=== PATIENT | female | born 1965 | race African-American/Black ===

== ENCOUNTER 2017-08-29 08:35 | Outpatient (CLI) | payer OTHER | END 2017-08-29 19:55 | disposition home or self-care (01) | LOC: SNM 08:35 | PROVIDERS: ATTEND Specialist | DX: E05.00 Thyrotoxicosis with diffuse goiter without thyrotoxic crisis or storm (principal); E05.90 Thyrotoxicosis, unspecified without thyrotoxic crisis or storm | CPT/HCPCS: 78012; A9516 ==

== ENCOUNTER 2017-10-18 11:08 | Outpatient (CLI) | payer OTHER ==
[2017-10-18 12:08] LABS: BASOPHILS # (AUTO) 0.1 K/uL (0.0-0.2); EOSINOPHILS % (AUTO) 0.6 % (0.0-4.0); HEMATOCRIT 35.9 % (36-48); HEMOGLOBIN 11.7 g/dL (12.0-16.0); LYMPHOCYTES # (AUTO) 1.9 K/uL (1.0-5.5); LYMPHOCYTES % (AUTO) 30.2 % (20.5-51.5); MEAN CORPUSCULAR HEMOGLOBIN 26 pg (27-31); MEAN CORPUSCULAR HGB CONC 33 % (32-36); MEAN CORPUSCULAR VOLUME 80 fL (79.0-98.0); MONOCYTES # (AUTO) 0.5 K/uL (0.0-1.0); MONOCYTES % (AUTO) 7.3 % (1.7-9.3); NEUTROPHILS # (AUTO) 3.8 K/uL (1.8-7.7); NEUTROPHILS % (AUTO) 60.9 % (40.0-70.0); PLATELET COUNT (AUTO) 350 K/uL (130-430); RED BLOOD CELL COUNT(AUTO) 4.51 MIL/uL (4.2-6.2); RED CELL DISTRIBUTION WIDTH 13.4 % (9.0-15.0); WHITE BLOOD COUNT (AUTO) 6.3 K/uL (4.8-10.8)
[2017-10-18 12:22] LABS: FREE T4 (FREE THYROXINE) 1.3 ng/dl (0.8-1.5); THYROID STIMULATING HORMONE < 0.01 uIu/mL (0.36-3.74)
[2017-10-19 06:16] LABS: HEMOGLOBIN A1C 5.5 % (4.8-5.6)
== END 2017-10-18 20:54 | disposition home or self-care (01) ==
LOC: SLB 11:08
PROVIDERS: ATTEND Specialist
DX: E05.00 Thyrotoxicosis with diffuse goiter without thyrotoxic crisis or storm (principal); E05.90 Thyrotoxicosis, unspecified without thyrotoxic crisis or storm; R73.09 Other abnormal glucose
CPT/HCPCS: 36415; 83036; 84439; 84443-TC; 84480; 85025

== ENCOUNTER 2017-10-19 10:19 | Outpatient (CLI) | payer OTHER | END 2017-10-19 19:07 | disposition home or self-care (01) | LOC: SUS 10:19 | PROVIDERS: ATTEND Specialist | DX: E04.2 Nontoxic multinodular goiter (principal); E05.90 Thyrotoxicosis, unspecified without thyrotoxic crisis or storm | CPT/HCPCS: 76536-TC ==

== ENCOUNTER 2018-04-21 08:05 | Outpatient (CLI) | payer OTHER ==
[2018-04-21 08:58] LABS: HEMATOCRIT 37.7 % (36-48); HEMOGLOBIN 12.3 g/dL (12.0-16.0); MEAN CORPUSCULAR VOLUME 82 fL (79.0-98.0); RED BLOOD CELL COUNT(AUTO) 4.59 MIL/uL (4.2-6.2); WHITE BLOOD COUNT (AUTO) 5.3 K/uL (4.8-10.8)
[2018-04-21 08:59] LABS: BASOPHILS % (AUTO) 0.4 % (0.0-2.0); EOSINOPHILS # (AUTO) 0.1 K/uL (0.0-0.4); EOSINOPHILS % (AUTO) 1.4 % (0.0-4.0); LYMPHOCYTES # (AUTO) 1.9 K/uL (1.0-5.5); LYMPHOCYTES % (AUTO) 35.7 % (20.5-51.5); MEAN CORPUSCULAR HEMOGLOBIN 27 pg (27-31); MEAN CORPUSCULAR HGB CONC 33 % (32-36); MONOCYTES # (AUTO) 0.5 K/uL (0.0-1.0); MONOCYTES % (AUTO) 9.9 % (1.7-9.3); NEUTROPHILS # (AUTO) 2.8 K/uL (1.8-7.7); NEUTROPHILS % (AUTO) 52.6 % (40.0-70.0); PLATELET COUNT (AUTO) 318 K/uL (130-430); RED CELL DISTRIBUTION WIDTH 13.3 % (9.0-15.0)
[2018-04-21 09:30] LABS: ALBUMIN 3.1 g/dL (3.4-4.8); CALCIUM 9.2 mg/dL (8.4-11.0); CREATININE 0.6 mg/dL (0.55-1.30); FREE T4 (FREE THYROXINE) 0.6 ng/dL (0.6-1.6); POTASSIUM 3.9 mmol/L (3.5-5.1); THYROID STIMULATING HORMONE 0.55 uIu/mL (0.34-4.82); TOTAL BILIRUBIN 0.5 mg/dL (0.0-1.0)
[2018-04-23 00:31] LABS: HEMOGLOBIN A1C 5.5 % (4.8-5.6)
== END 2018-04-21 21:02 | disposition home or self-care (01) ==
LOC: SLB 08:05
PROVIDERS: ATTEND Specialist
DX: E55.9 Vitamin D deficiency, unspecified (principal); R73.09 Other abnormal glucose; E66.09 Other obesity due to excess calories; E05.00 Thyrotoxicosis with diffuse goiter without thyrotoxic crisis or storm
CPT/HCPCS: 36415; 80053; 80061; 82306; 83036; 84439; 84443-TC; 85025

== ENCOUNTER 2018-08-21 09:55 | Outpatient (CLI) | payer OTHER ==
[2018-08-21 10:42] LABS: BASOPHILS % (AUTO) 0.6 % (0.0-2.0); EOSINOPHILS # (AUTO) 0.1 K/uL (0.0-0.4); EOSINOPHILS % (AUTO) 1.2 % (0.0-4.0); HEMATOCRIT 40.2 % (36-48); HEMOGLOBIN 13.1 g/dL (12.0-16.0); LYMPHOCYTES # (AUTO) 1.9 K/uL (1.0-5.5); MEAN CORPUSCULAR HEMOGLOBIN 27 pg (27-31); MEAN CORPUSCULAR HGB CONC 33 % (32-36); MEAN CORPUSCULAR VOLUME 83 fL (79.0-98.0); MONOCYTES # (AUTO) 0.4 K/uL (0.0-1.0); MONOCYTES % (AUTO) 7.4 % (1.7-9.3); NEUTROPHILS # (AUTO) 3.5 K/uL (1.8-7.7); NEUTROPHILS % (AUTO) 58.8 % (40.0-70.0); PLATELET COUNT (AUTO) 325 K/uL (130-430); RED BLOOD CELL COUNT(AUTO) 4.85 MIL/uL (4.2-6.2)
[2018-08-21 11:23] LABS: FREE T4 (FREE THYROXINE) 0.9 ng/dL (0.6-1.6); THYROID STIMULATING HORMONE 0.42 uIu/mL (0.34-4.82)
== END 2018-08-21 20:57 | disposition home or self-care (01) ==
LOC: SLB 09:55
PROVIDERS: ATTEND Specialist
DX: E05.00 Thyrotoxicosis with diffuse goiter without thyrotoxic crisis or storm (principal); R73.09 Other abnormal glucose
CPT/HCPCS: 36415; 84439; 84443-TC; 84480; 85025

== ENCOUNTER 2018-12-25 09:51 | Outpatient (CLI) | payer OTHER ==
[2018-12-25 10:39] LABS: BASOPHILS % (AUTO) 0.3 % (0.0-2.0); EOSINOPHILS # (AUTO) 0.1 K/uL (0.0-0.4); EOSINOPHILS % (AUTO) 1.5 % (0.0-4.0); HEMATOCRIT 35.6 % (36-48); HEMOGLOBIN 11.7 g/dL (12.0-16.0); LYMPHOCYTES % (AUTO) 34.1 % (20.5-51.5); MEAN CORPUSCULAR HEMOGLOBIN 27 pg (27-31); MEAN CORPUSCULAR HGB CONC 33 % (32-36); MEAN CORPUSCULAR VOLUME 82 fL (79.0-98.0); MONOCYTES # (AUTO) 0.5 K/uL (0.0-1.0); MONOCYTES % (AUTO) 9.1 % (1.7-9.3); NEUTROPHILS # (AUTO) 3.2 K/uL (1.8-7.7); PLATELET COUNT (AUTO) 297 K/uL (130-430); RED BLOOD CELL COUNT(AUTO) 4.33 MIL/uL (4.2-6.2); RED CELL DISTRIBUTION WIDTH 14.1 % (9.0-15.0); WHITE BLOOD COUNT (AUTO) 5.8 K/uL (4.8-10.8)
[2018-12-25 11:37] LABS: CALCIUM 8.8 mg/dL (8.4-11.0); CREATININE 0.57 mg/dL (0.55-1.30); POTASSIUM 3.8 mmol/L (3.5-5.1); TOTAL BILIRUBIN 0.4 mg/dL (0.0-1.0)
[2018-12-25 11:38] LABS: ALBUMIN 3.6 g/dL (3.4-4.8); FREE T4 (FREE THYROXINE) 1.2 ng/dL (0.6-1.6); THYROID STIMULATING HORMONE 1.05 uIu/mL (0.34-4.82)
== END 2018-12-25 21:07 | disposition home or self-care (01) ==
LOC: SLB 09:51
PROVIDERS: ATTEND Specialist
DX: E05.00 Thyrotoxicosis with diffuse goiter without thyrotoxic crisis or storm (principal); E66.09 Other obesity due to excess calories; R73.09 Other abnormal glucose
CPT/HCPCS: 36415; 80053; 80061; 83036; 84439; 84443-TC; 85025

== ENCOUNTER 2019-01-09 10:05 | Outpatient (CLI) | payer OTHER | END 2019-01-09 21:08 | disposition home or self-care (01) | LOC: SMA 10:05 | DX: Z12.31 Encounter for screening mammogram for malignant neoplasm of breast (principal) | CPT/HCPCS: 77067 ==

== ENCOUNTER 2019-04-24 08:35 | Outpatient (CLI) | payer OTHER ==
[2019-04-24 09:34] LABS: BASOPHILS % (AUTO) 0.2 % (0.0-2.0); EOSINOPHILS % (AUTO) 0.8 % (0.0-4.0); HEMATOCRIT 37.3 % (36-48); HEMOGLOBIN 12.3 g/dL (12.0-16.0); LYMPHOCYTES # (AUTO) 1.8 K/uL (1.0-5.5); MEAN CORPUSCULAR HEMOGLOBIN 27 pg (27-31); MEAN CORPUSCULAR HGB CONC 33 % (32-36); MEAN CORPUSCULAR VOLUME 82 fL (79.0-98.0); MONOCYTES # (AUTO) 0.5 K/uL (0.0-1.0); MONOCYTES % (AUTO) 9.2 % (1.7-9.3); NEUTROPHILS # (AUTO) 2.9 K/uL (1.8-7.7); NEUTROPHILS % (AUTO) 55.8 % (40.0-70.0); PLATELET COUNT (AUTO) 358 K/uL (130-430); RED BLOOD CELL COUNT(AUTO) 4.57 MIL/uL (4.2-6.2); RED CELL DISTRIBUTION WIDTH 13.4 % (9.0-15.0); WHITE BLOOD COUNT (AUTO) 5.2 K/uL (4.8-10.8)
[2019-04-24 09:52] LABS: ALBUMIN 3.3 g/dL (3.4-4.8); CALCIUM 9.2 mg/dL (8.4-11.0); CREATININE 0.62 mg/dL (0.55-1.30); FREE T4 (FREE THYROXINE) 1.2 ng/dl (0.8-1.5); POTASSIUM 3.4 mmol/L (3.5-5.1); THYROID STIMULATING HORMONE 1.76 uIu/mL (0.36-3.74); TOTAL BILIRUBIN 0.5 mg/dL (0.0-1.0)
[2019-04-25 08:11] LABS: HEMOGLOBIN A1C 5.6 % (4.8-5.6)
== END 2019-04-24 21:08 | disposition home or self-care (01) ==
LOC: SUS 08:35
PROVIDERS: ATTEND Specialist
DX: E04.9 Nontoxic goiter, unspecified (principal); E50.0 Vitamin A deficiency with conjunctival xerosis; E66.01 Morbid (severe) obesity due to excess calories; E55.9 Vitamin D deficiency, unspecified; D50.0 Iron deficiency anemia secondary to blood loss (chronic)
CPT/HCPCS: 36415; 76536-TC; 80053; 82306; 83036; 83540-TC; 83550-TC; 84439; 84443-TC; 85025

== ENCOUNTER 2019-08-13 09:38 | Outpatient (CLI) | payer OTHER | END 2019-08-13 20:52 | disposition home or self-care (01) | LOC: SMA 09:38 | DX: N64.89 Other specified disorders of breast (principal) | CPT/HCPCS: 77065 ==

== ENCOUNTER 2020-07-08 09:16 | Outpatient (CLI) | payer OTHER ==
[2020-07-08 10:37] LABS: BASOPHILS % (AUTO) 0.6 % (0.0-2.0); EOSINOPHILS # (AUTO) 0.1 K/uL (0.0-0.4); HEMATOCRIT 36.1 % (36-48); HEMOGLOBIN 11.7 g/dL (12.0-16.0); LYMPHOCYTES # (AUTO) 1.7 K/uL (1.0-5.5); LYMPHOCYTES % (AUTO) 31.4 % (20.5-51.5); MEAN CORPUSCULAR HEMOGLOBIN 26 pg (27-31); MEAN CORPUSCULAR HGB CONC 33 % (32-36); MEAN CORPUSCULAR VOLUME 81 fL (79.0-98.0); MONOCYTES # (AUTO) 0.5 K/uL (0.0-1.0); MONOCYTES % (AUTO) 8.6 % (1.7-9.3); NEUTROPHILS # (AUTO) 3.1 K/uL (1.8-7.7); NEUTROPHILS % (AUTO) 58.4 % (40.0-70.0); PLATELET COUNT (AUTO) 353 K/uL (130-430); RED BLOOD CELL COUNT(AUTO) 4.49 MIL/uL (4.2-6.2); RED CELL DISTRIBUTION WIDTH 14.3 % (9.0-15.0); WHITE BLOOD COUNT (AUTO) 5.4 K/uL (4.8-10.8)
[2020-07-08 10:57] LABS: ALBUMIN 3.2 g/dL (3.4-4.8); CALCIUM 9.4 mg/dL (8.4-11.0); CREATININE 0.59 mg/dL (0.55-1.30); FREE T4 (FREE THYROXINE) 1.3 ng/dl (0.8-1.5); POTASSIUM 3.7 mmol/L (3.5-5.1); THYROID STIMULATING HORMONE 0.69 uIu/mL (0.36-3.74); TOTAL BILIRUBIN 0.4 mg/dL (0.0-1.0)
== END 2020-07-08 20:30 | disposition home or self-care (01) ==
LOC: SUS 09:16
DX: Z00.00 Encounter for general adult medical examination without abnormal findings (principal); M79.604 Pain in right leg
CPT/HCPCS: 36415; 80053; 80061; 82306; 84439; 84443; 85025; 93922; 93971

== ENCOUNTER 2020-07-30 10:45 | Outpatient (CLI) | payer OTHER | END 2020-07-30 21:06 | disposition home or self-care (01) | LOC: SMA 10:45 | DX: Z12.31 Encounter for screening mammogram for malignant neoplasm of breast (principal); N64.89 Other specified disorders of breast | CPT/HCPCS: 77067 ==

== ENCOUNTER 2021-10-27 11:05 | Inpatient (IN) | payer OTHER ==
[~2021-10-27] VITALS: Ht 172.7 cm; Wt 112.9 kg
[~2021-10-27 11:05] MED LIST: ACETAMINOPHEN 500 MG TABLET PO ONE; CEFAZOLIN SOD 1 GM in D5W 50 ML IV ONE; CELECOXIB 200 MG CAPSULE PO ONE; PREGABALIN 75 MG CAPSULE (LYRICA) PO ONE
[2021-10-27] MEDS ORDERED: ACETAMINOPHEN 500 MG TABLET ONE (11:58)
[2021-10-27] MEDS ORDERED: CELECOXIB 200 MG CAPSULE ONE (11:58)
[2021-10-27] MEDS ORDERED: PREGABALIN 75 MG CAPSULE (LYRICA) ONE (11:59)
[2021-10-27] MEDS ORDERED: PREGABALIN 75 MG CAPSULE (LYRICA) PO ONE (12:00)
[2021-10-27] MEDS ORDERED: CELECOXIB 200 MG CAPSULE PO ONE (12:00)
[2021-10-27] MEDS ORDERED: ACETAMINOPHEN 500 MG TABLET PO ONE (12:00)
[2021-10-27] MEDS ORDERED: AMLO5TAB4 PO (12:55)
[2021-10-27] MEDS ORDERED: VIT1TABL67 PO (12:55)
[2021-10-27] MEDS ORDERED: HYDR12.55 (12:55)
[2021-10-27] MEDS ORDERED: TRAM50TA2 PO (12:55)
[2021-10-27] MEDS ORDERED: ZAN4 PO (12:55)
[2021-10-27] MEDS ORDERED: TIZA2CAP7 PO (12:55)
[2021-10-27] MEDS ORDERED: METH-373 PO (12:55)
[2021-10-27] MEDS ORDERED: POTA-197 PO (12:55)
[2021-10-27] MEDS ORDERED: METOCLOPRAMIDE HCL 10 MG/2 ML VIAL ONE (13:35)
[2021-10-27] MEDS ORDERED: MIDAZOLAM HCL 2 MG/2 ML VIAL (VERSED) ONE (13:35)
[2021-10-27] MEDS ORDERED: SEVOFLURANE 15 MIN GAS INH ONE (13:35)
[2021-10-27] MEDS ORDERED: PROPOFOL 200MG/ 20ML VIAL (DIPRIVAN) IV ONE (13:35)
[2021-10-27] MEDS ORDERED: BUPIVACAINE /PF 0.75% 10 ML VIAL INJ ONE (13:35)
[2021-10-27] MEDS ORDERED: ceFAZolin SODIUM 1 GM VIAL ONE (13:35)
[2021-10-27] MEDS ORDERED: GLYCOPYRROLATE 0.2 MG/ML VIAL ONE (13:35)
[2021-10-27] MEDS ORDERED: LR 1,000 ML IV.SOLN IV ONE (13:35)
[2021-10-27] MEDS ORDERED: NS IRRIG SOLN 1000 ML IR ONE (13:35)
[2021-10-27] MEDS ORDERED: fentaNYL CITRATE/PF 100 MCG/2 ML AMP ONE (13:35)
[2021-10-27] MEDS ORDERED: ONDANSETRON HCL 4 MG/2 ML VIAL ONE (13:35)
[2021-10-27] MEDS ORDERED: NS IRRIG SOLN 5000 ML IR ONE (13:35)
[2021-10-27] MEDS ORDERED: TRANEXAMIC ACID 1,000 MG/10 ML VIAL ONE (13:35)
[2021-10-27] MEDS ORDERED: EPINEPHrine HCL 1 MG/ML VIAL ONE (13:35)
[2021-10-27] MEDS ORDERED: ONDANSETRON HCL 4 MG/2 ML VIAL IVP PRN (16:00)
[2021-10-27] MEDS ORDERED: METOCLOPRAMIDE HCL 10 MG/2 ML VIAL IVP PRN (16:00)
[2021-10-27] MEDS ORDERED: fentaNYL CITRATE/PF 100 MCG/2 ML AMP IVP PRN ×2 (16:00)
[2021-10-27] MEDS ORDERED: ACETAMINOPHEN 325 MG TABLET PO PRN (16:45)
[2021-10-27 18:25] VITALS: BP_SYST 141
[2021-10-27] MEDS: ONDANSETRON HCL 4 MG/2 ML VIAL IVP PRN (19:11)
[2021-10-27] MEDS: HYDROcodone/ACETAMIN 5-325 MG TAB (NORCO/ VICODIN) PO PRN (19:12)
[2021-10-27 19:40] VITALS: BP_SYST 148
[2021-10-27 20:40] VITALS: BP_SYST 124
[2021-10-27] MEDS ORDERED: SENNOSIDES 8.6 MG TABLET PO PRN (21:00)
[2021-10-27] MEDS: LR 1,000 ML IV SCH (21:14)
[2021-10-27] MEDS: CEFAZOLIN 1 GM IVPB PREMIX 50 ML IV SCH (21:14)
[2021-10-28 01:02] VITALS: BP_SYST 133
[2021-10-28] MEDS: HYDROcodone/ACETAMIN 5-325 MG TAB (NORCO/ VICODIN) PO PRN ×3 (01:14→14:13)
[2021-10-28] MEDS: CEFAZOLIN 1 GM IVPB PREMIX 50 ML IV SCH (03:48)
[2021-10-28] MEDS: LR 1,000 ML IV SCH (06:35)
[2021-10-28 08:02] VITALS: BP_SYST 122
[2021-10-28] MEDS: ONDANSETRON HCL 4 MG/2 ML VIAL IVP PRN (11:17)
[2021-10-28 12:00] VITALS: BP_SYST 128
[2021-10-28 14:55] VITALS: BP_SYST 128
== END 2021-10-28 16:20 | disposition home or self-care (01) | DRG 470 ==
LOC: SDS 11:05 → SMU 11:07 → EDSTATUS 13:00 → SDS 18:01 → SMU 18:02
PROVIDERS: ADMIT Orthopaedic Surgery Sports Medicine; ATTEND Orthopaedic Surgery Sports Medicine
PROC: 0SRC0J9 Replacement of Right Knee Joint with Synthetic Substitute, Cemented, Open Approach (ICD-10-PCS; principal; 2021-10-27 13:00)
DX: M17.11 Unilateral primary osteoarthritis, right knee (principal); Z20.822 Contact with and (suspected) exposure to COVID-19; E03.9 Hypothyroidism, unspecified; I10 Essential (primary) hypertension; E66.01 Morbid (severe) obesity due to excess calories; Z68.37 Body mass index [BMI] 37.0-37.9, adult
CPT/HCPCS: 36415; 73560-TC; 88305; 88311; 97110-GP; 97116-GP; 97530-GP; J0171; J0690; J2405; J2704; J2765; J3010; J3465; J3490; J7060; J7120; U0003

== ENCOUNTER 2022-03-29 08:00 | Outpatient (CLI) | payer OTHER ==
[~2022-03-29] VITALS: Ht 172.7 cm; Wt 117.9 kg
[~2022-03-29 08:00] MED LIST changes: -ACETAMINOPHEN 500 MG TABLET PO ONE; +AMLO5TAB4 PO; -CEFAZOLIN SOD 1 GM in D5W 50 ML IV ONE; -CELECOXIB 200 MG CAPSULE PO ONE; +HYDR12.55; +METH-373 PO; +POTA-197 PO; -PREGABALIN 75 MG CAPSULE (LYRICA) PO ONE; +TIZA2CAP7 PO; +TRAM50TA2 PO; +VIT1TABL67 PO; +ZAN4 PO
[2022-03-31] MEDS ORDERED: CEFAZOLIN SOD 1 GM/ ISO 50 ML PREMIX IV ONE (07:00)
== END 2022-03-29 17:00 | disposition home or self-care (01) ==
LOC: SLB 08:00 → EDSTATUS 03-31 07:00
PROVIDERS: ATTEND Orthopaedic Surgery Sports Medicine
DX: Z01.818 Encounter for other preprocedural examination (principal); M25.661 Stiffness of right knee, not elsewhere classified; Z20.822 Contact with and (suspected) exposure to COVID-19
CPT/HCPCS: 36415; U0003; J0690

== ENCOUNTER 2022-06-04 07:09 | Day surgery (SDC) | payer OTHER ==
[2022-06-01 10:22] LABS: BASOPHILS % (AUTO) 0.3 % (0.0-2.0); EOSINOPHILS # (AUTO) 0.1 K/uL (0.0-0.4); EOSINOPHILS % (AUTO) 1.2 % (0.0-4.0); HEMATOCRIT 35.5 % (36-48); HEMOGLOBIN 11.7 g/dL (12.0-16.0); LYMPHOCYTES # (AUTO) 1.7 K/uL (1.0-5.5); LYMPHOCYTES % (AUTO) 25.8 % (20.5-51.5); MEAN CORPUSCULAR HEMOGLOBIN 26 pg (27-31); MEAN CORPUSCULAR HGB CONC 33 % (32-36); MEAN CORPUSCULAR VOLUME 79 fL (79.0-98.0); MONOCYTES # (AUTO) 0.6 K/uL (0.0-1.0); MONOCYTES % (AUTO) 8.4 % (1.7-9.3); NEUTROPHILS # (AUTO) 4.3 K/uL (1.8-7.7); NEUTROPHILS % (AUTO) 64.3 % (40.0-70.0); PLATELET COUNT (AUTO) 381 K/uL (130-430); RED BLOOD CELL COUNT(AUTO) 4.52 MIL/uL (4.2-6.2); RED CELL DISTRIBUTION WIDTH 15.3 % (9.0-15.0); WHITE BLOOD COUNT (AUTO) 6.7 K/uL (4.8-10.8)
[2022-06-01 10:24] LABS: CALCIUM 9.3 mg/dL (8.4-11.0); CREATININE 0.69 mg/dL (0.55-1.30)
[2022-06-01 10:29] LABS: PROTHROMBIN TIME 10.4 SECS (9.5-12.5)
[~2022-06-04] VITALS: Ht 172.7 cm; Wt 122.5 kg
[~2022-06-04 07:09] MED LIST changes: +CEFAZOLIN SOD 1 GM/ ISO 50 ML PREMIX IV ONE
[2022-06-04] MEDS ORDERED: METOCLOPRAMIDE HCL 10 MG/2 ML VIAL IVP PRN (09:00)
[2022-06-04] MEDS ORDERED: ONDANSETRON HCL 4 MG/2 ML VIAL IVP PRN (09:00)
[2022-06-04] MEDS ORDERED: KETOROLAC TROMETHAMINE 30 MG VIAL IVP PRN (09:00)
[2022-06-04] MEDS ORDERED: IBUPROFEN 800 MG TABLET PO PRN (09:00)
[2022-06-04] MEDS ORDERED: HYDROmorphone 1 MG/ML INJ. CARTRIDGE ONE (09:13)
[2022-06-04] MEDS: HYDROmorphone 1 MG/ML INJ. CARTRIDGE IVP PRN ×2 (09:16→09:26)
[2022-06-04 11:57] VITALS: BP_SYST 136
[2022-06-11] MEDS ORDERED: LIDOCAINE HCL/PF 1% 10 ML AMPUL INJ ONE (08:35)
[2022-06-11] MEDS ORDERED: PROPOFOL 200MG/ 20ML VIAL (DIPRIVAN) IV ONE (08:35)
== END 2022-06-04 10:50 | disposition home or self-care (01) ==
LOC: SDS 07:09 → SMU 07:16 → SDS 10:50
PROVIDERS: ATTEND Orthopaedic Surgery Sports Medicine
DX: M25.661 Stiffness of right knee, not elsewhere classified (principal); M17.11 Unilateral primary osteoarthritis, right knee; I10 Essential (primary) hypertension; E05.90 Thyrotoxicosis, unspecified without thyrotoxic crisis or storm; Z79.01 Long term (current) use of anticoagulants; Z79.899 Other long term (current) drug therapy; Z20.822 Contact with and (suspected) exposure to COVID-19
CPT/HCPCS: 80048; 85025; 85610; 87081; 36415 ×2; 93005; 27570; 20610; 87426; J0690; J1170

== ENCOUNTER 2022-09-24 10:33 | Outpatient (CLI) | payer OTHER ==
[~2022-09-24 10:33] MED LIST changes: -CEFAZOLIN SOD 1 GM/ ISO 50 ML PREMIX IV ONE
[2022-09-24 11:18] LABS: EOSINOPHILS % (AUTO) 0.8 % (0.0-4.0); HEMOGLOBIN 11.1 g/dL (12.0-16.0); MEAN CORPUSCULAR HGB CONC 32 % (32-36); MONOCYTES # (AUTO) 0.5 K/uL (0.0-1.0); NEUTROPHILS # (AUTO) 3.3 K/uL (1.8-7.7); WHITE BLOOD COUNT (AUTO) 5.7 K/uL (4.8-10.8)
[2022-09-24 11:21] LABS: BASOPHILS % (AUTO) 0.4 % (0.0-2.0); HEMATOCRIT 34.8 % (36-48); LYMPHOCYTES # (AUTO) 1.9 K/uL (1.0-5.5); LYMPHOCYTES % (AUTO) 33.4 % (20.5-51.5); MEAN CORPUSCULAR HEMOGLOBIN 25 pg (27-31); MEAN CORPUSCULAR VOLUME 79 fL (79.0-98.0); MONOCYTES % (AUTO) 8.1 % (1.7-9.3); NEUTROPHILS % (AUTO) 57.3 % (40.0-70.0); PLATELET COUNT (AUTO) 366 K/uL (130-430); RED BLOOD CELL COUNT(AUTO) 4.43 MIL/uL (4.2-6.2); RED CELL DISTRIBUTION WIDTH 15.5 % (9.0-15.0)
[2022-09-24 12:07] LABS: ALBUMIN 3.2 g/dL (3.4-4.8); CALCIUM 9.3 mg/dL (8.4-11.0); CREATININE 0.67 mg/dL (0.55-1.30); FREE T4 (FREE THYROXINE) 1.2 ng/dL (0.6-1.6); THYROID STIMULATING HORMONE 0.9 uIu/mL (0.34-4.82); TOTAL BILIRUBIN 0.4 mg/dL (0.0-1.0)
== END 2022-09-24 18:34 | disposition home or self-care (01) ==
LOC: SMA 10:33
PROVIDERS: ATTEND Family Medicine
DX: Z12.31 Encounter for screening mammogram for malignant neoplasm of breast (principal); I10 Essential (primary) hypertension; E55.9 Vitamin D deficiency, unspecified
CPT/HCPCS: 36415; 77067; 80053; 80061; 82306; 84439; 84443; 85025